=== PATIENT | male | born 1990 | race Two or more races ===

== ENCOUNTER 2022-11-23 17:56 | Emergency (ER) | payer MEDICAID ==
[~2022-11-23] VITALS: Ht 172.7 cm; Wt 77.1 kg
--- NOTE | 2022-11-23 18:20 | NUR ---
THROAT DISCOMFORT WORST SINCE LAST NIGHT.
[2022-11-23] MEDS ORDERED: LIDOCAINE VISCOUS 2% UD 15 ML UDC ONE (19:27)
[2022-11-23] MEDS ORDERED: MAG HYDROX/AL HYDROX/SIMETH 30 ML UDC ONE (19:27)
[2022-11-23] MEDS ORDERED: MAG HYDROX/AL HYDROX/SIMETH 30 ML UDC PO ONE (19:30)
[2022-11-23] MEDS ORDERED: LIDOCAINE VISCOUS 2% UD 15 ML UDC MM ONE (19:30)
[2022-11-23] MEDS ORDERED: OMEP20CA15 PO (20:32)
[2022-11-23 20:37] VITALS: BP 132/72
--- NOTE | 2022-11-23 20:37 | NUR ---
Patient discharged to home in stable condition. Written and verbal after care instructions given. Patient verbalizes understanding of instruction.
== END 2022-11-23 20:38 | disposition home or self-care (01) ==
LOC: ER 18:02
DX: R07.0 Pain in throat (principal)